=== PATIENT | female | born 1990 | race Caucasian/White ===

== ENCOUNTER 2025-05-14 10:13 | Emergency (ER) | payer MEDICAID ==
[~2025-05-14] VITALS: Ht 157.5 cm; Wt 50.8 kg
[2025-05-14 10:19] VITALS: TEMP 98.5
[2025-05-14] MEDS: ondansetron 4mg rapidly disintigrating tab PO ONE (10:41)
[2025-05-14 10:50] LABS: MEAN PLATELET VOLUME 7.2 FL (7.4-10.4); RED CELL DISTRIBUTION WIDTH 13.4 % (11.5-14.5)
[2025-05-14 11:07] LABS: CREATININE 0.74 MG/DL (0.40-0.90); TOTAL CARBON DIOXIDE 30.1 MMOL/L (24-32); eCRCL 83 ML/MIN; eGFR 89 ML/MIN
[2025-05-14] MEDS: ondansetron/PF 4mg/2ml inj IV ONE (11:09)
[2025-05-14] MEDS: normal saline 1000ml 1,000 ML IV ONE (11:10)
[2025-05-14] MEDS ORDERED: iohexol 300mg/ml 100ml inj. ONE (11:58)
[2025-05-14] MEDS: morphine 4 MG/ML inj SYRINge IV ONE (12:18)
[2025-05-14 12:21] LABS: LEUKOCYTE ESTERASE ,URINE NEGATIVE (Neg); NITRITES, URINE NEGATIVE (Neg); OCCULT BLOOD,URINE NEGATIVE (Neg)
[2025-05-14 12:24] LABS: URINE HCG NEGATIVE (NEG)
[2025-05-14 12:35] LABS: UA COLLECTION TYPE CLN CATCH MIDSTREAM
[2025-05-14 12:49] LABS: HYALINE CASTS 0-3 /LPF (NEGATIVE); MUCUS STRANDS FEW /LPF (Neg); SQUAMOUS EPITHELIAL CELL,UR MODERATE /LPF (FEW)
--- NOTE | 2025-05-14 13:59 | RADIOLOGY REPORT ---
Indication: Abdominal pain, nausea vomiting, leukocytosis Technique: CT axial images of the abdomen and pelvis are obtained with intravenous contrast. Coronal and sagittal reformats were obtained. Radiation Dose Information: CTDI volume is 6 mGy. Dose-length product is 277 mGy*cm Comparison: None FINDINGS: Lung bases demonstrate 3 mm left lower lobe subpleural nodule Adrenal glands unremarkable. Spleen unremarkable. Pancreas unremarkable. No enhancing hepatic lesion. No CT evidence for cholelithiasis. Liver measures 21 cm craniocaudal. No hydronephrosis. Stomach is partially distended. Small bowel loops are normal in caliber. Large bowel relatively nondistended. No secondary signs for appendicitis. The abdominal aorta is normal in caliber. No retroperitoneal lymphadenopathy. Bladder is partially distended. No significant free pelvic fluid. No inguinal lymphadenopathy. No aggressive osseous process. IMPRESSION: No CT evidence for acute abnormality of the abdomen/pelvis. Hepatomegaly. Other findings as described
[2025-05-14 14:26] VITALS: BP 101/66; PULSE 71; RESP 16; O2SAT 98
--- NOTE | 2025-05-14 14:56 | Physician Documentation ---
History of Present Illness Chief Complaint: Vomiting Stated Complaint: POSS ALCOHOL POISONING Time Seen by MD: 10:23 HPI 35-year-old female presented with 16 hours of abdominal pain, nausea, and vomiting. Family members have had similar symptoms. Patient reports she has been unable to keep fluids down since 5:00 a.m. this morning. Reports he drank a few cocktails LEs and is concerned that this may be contributing to her episode today. No other symptoms reported at this time. Medication Reconciliation Allergies: Coded Allergies: No Known Allergies (Unverified , 05/14/25) Review of Systems ROS As stated above in the HPI, otherwise all systems are reviewed and negative. Physical Exam Vital Signs: Temperature: 98.5, Source: Temporal, Heart Rate: 71, Respiratory Rate: 16, BP: 101/66, Pulse Oximetry: 98, Weight: 50.800 Oxygen Flow Rate: 0 Physical Exam VITALS: Reviewed and as above. GENERAL: Alert, no apparent distress. HEENT: Normocephalic, atraumatic, PERRL, EOMI, dry mucosa, no erythema RESPIRATORY: Lungs clear, normal breath sounds, no respiratory distress. CHEST: No accessory muscle use, no retractions CV: Regular rate, rhythm, no edema, no murmur, No: JVD GI: Soft, tender with palpation throughout abdomen, bowels sounds present, no rebound, guarding, or rigidity BACK: No CVA tenderness, or swelling MUSCULOSKELETAL No deformities, no edema SKIN: Warm and dry, no rash NEURO: Oriented x4, No motor or sensory deficit PSYCH: Normal mood and affect, no agitation Progress Results/Orders Results/Orders Orders - SYBIL BUI * Iv Access / Saline Lock * (05/14/25 10:50) Ct Abdomen Pelvis (05/14/25 13:20) Completed Orders - SYBIL BUI Hcg, Ur Ql (05/14/25 10:23) Cbc/Diff (05/14/25 10:23) Lipase (05/14/25 10:23) CMP (05/14/25 10:23) Ondansetron Disint. Tablet (Zofran Odt T (05/14/25 10:25) Ondansetron Inj. (Zofran 4mg/2ml Vial) (05/14/25 10:50) Normal Saline 1000ml (0.9% Sodium Chlori (05/14/25 10:50) Ct Abdomen Pelvis (05/14/25 13:20) Iohexol 300mg/Ml 100ml Inj. (Omnipaque-3 (05/14/25 11:58) Morphine 4mg/Ml Inj. (Morphine Inj.) (05/14/25 12:10) Ua W/Microscopic, Cult If Ind (05/14/25 12:05) Medications Received in ER Medications (Trade) Dose Ordered Sig/Renetta Route PRN Reason Start Time Stop Time Status Last Admin Dose Admin (Zofran ODT tablet) 4 mg ONCE ONCE PO 05/14/25 10:25 05/14/25 10:26 DC 05/14/25 10:41 4 MG (Zofran 4mg/2ml vial) 4 mg ONCE ONCE IV 05/14/25 10:50 05/14/25 11:04 DC 05/14/25 11:09 4 MG Sodium Chloride 1,000 ml @ 1,000 mls/hr ONCE ONCE IV 05/14/25 10:50 05/14/25 11:49 DC 05/14/25 11:10 1,000 MLS/HR (morphine inj.) 4 mg ONCE ONCE IV 05/14/25 12:10 05/14/25 12:12 DC 05/14/25 12:18 4 MG Vital Signs 05/14/25 05/14/25 05/14/25 05/14/25 10:19 12:11 12:18 13:42 Temp 98.5 Pulse 77 84 Resp 18 20 16 16 B/P (MAP) 112/58 145/110 (122) Pulse Ox 99 98 O2 Flow Rate 0 0 05/14/25 14:26 Pulse 71 Resp 16 B/P (MAP) 101/66 Pulse Ox 98 Laboratory Tests Test 05/14/25 10:42 05/14/25 12:05 White Blood Count 13.5 H Red Blood Count 4.38 Hemoglobin 13.4 Hematocrit 40.0 Mean Corpuscular Volume 91.3 Mean Corpuscular Hemoglobin 30.6 Mean Corpuscular Hemoglobin Concent 33.5 Red Cell Distribution Width 13.4 Platelet Count 319 Mean Platelet Volume 7.2 L Neutrophils (%) (Auto) 84.1 H Lymphocytes (%) (Auto) 11.6 L Monocytes (%) (Auto) 3.7 Eosinophils (%) (Auto) 0.3 Basophils (%) (Auto) 0.3 Neutrophils # (Auto) 11.4 H Lymphocytes # (Auto) 1.6 Monocytes # (Auto) 0.5 Eosinophils # (Auto) 0.0 Basophils # (Auto) 0.0 CBC Comment Sodium Level 139 Potassium Level 3.9 Chloride Level 101 Carbon Dioxide Level 30.1 Anion Gap 8 Blood Urea Nitrogen 11 Creatinine 0.74 Estimated GFR/1.73 m2 89 BUN/Creatinine Ratio 14.9 Glucose Level 119 H Calcium Level 8.8 Total Bilirubin 0.4 Aspartate Amino Transf (AST/SGOT) 36 Alanine Aminotransferase (ALT/SGPT) 46 Alkaline Phosphatase 84 Total Protein 8.1 Albumin 4.3 Globulin 3.8 Albumin/Globulin Ratio 1.1 Lipase 143 H Chemistry Comments Urine Specimen Description Cln catch midstream Urine Color Yellow Urine Clarity Clear Urine pH 8.5 Urine Specific [place] 1.015 Urine Protein 30 H Urine Glucose (UA) Negative Urine Ketones >=80 Urine Occult Blood Negative Urine Nitrite Negative Urine Bilirubin Negative Urine Urobilinogen 0.2 Urine Leukocyte Esterase Negative Urine RBC 0-2 Urine WBC 0-4 Urine Squamous Epithelial Cells Moderate Urine Transitional Epithelial Cells Few Urine Bacteria 1+ Urine Hyaline Casts 0-3 Urine Mucus Few Urine Culture Indicated Not ind Volume Urine Centrifuged 10 ml Urine HCG, Qualitative Negative Urine Comment Medical Decision Making Additional information obtaine: other Findings 35-year-old female presented with 16 hours of abdominal pain, nausea, and vomiting. Family members have had similar symptoms, raising suspicion for a viral gastroenteritis. She consumed alcohol last night and was concerned about its contribution. No history of prior abdominal surgeries or chronic GI disease. No alarm features (e.g., peritonitis, hemodynamic instability, GI bleeding). Evaluation: Vitals stable throughout ED course. Physical exam: No peritoneal signs, no focal tenderness suggestive of surgical abdomen. Labs: Mild leukocytosis, no evidence of metabolic derangement or organ dysfunction. Imaging: CT abdomen/pelvis negative for appendicitis, obstruction, or other acute abdominal pathology. Responded well to IV fluids, ondansetron, and morphine for pain. Medical Decision-Making: Most likely diagnosis is acute viral gastroenteritis, given symptom profile, family history, and absence of surgical pathology. Mild leukocytosis is consistent with a self-limited infectious or inflammatory process. No evidence for appendicitis, cholecystitis, bowel obstruction, or other acute surgical condition. Symptomatic management with antiemetics (ondansetron) is appropriate; opioid analgesia was used judiciously for pain control. Patient is now resting comfortably, tolerating oral fluids, and feels well enough for discharge. Discharge Plan: Prescribe ondansetron for ongoing nausea/vomiting, with instructions for use and warnings regarding potential side effects (QT prolongation, serotonin syndrome). [employer] on oral rehydration and gradual return to normal diet. Provide strict return precautions: worsening pain, persistent vomiting, inability to tolerate fluids, fever, or new symptoms. Advise follow-up with primary care provider for reassessment if symptoms persist or worsen. will provide transportation home. Disposition: Safe for discharge with supportive care, clear instructions, and reliable follow-up. No evidence of acute surgical abdomen or need for admission at this time. Differential Dx:Considerations: Appendicitis, Bowel obstruction, Cholangitis, Gastritis/PUD, Gastroenteritis, GI hemorrhage, Inflammatory BD, Ischemic bowel, Ovarian cyst/torsion, Pancreatitis, Urinary obstruction, Urinary tract infection, Other Departure Disposition: 01 HOME / SELF CARE / HOMELESS Impression: Primary Impression: Viral gastroenteritis Condition: Stable Discharge Instructions: Viral Gastroenteritis, Adult Additional Instructions: You were seen in the emergency department for abdominal pain, nausea, and vomiting. Your tests did not show any serious problems like appendicitis, and your symptoms are most likely due to a stomach virus (gastroenteritis). What to expect: Most people start to feel better within a few days. You may still have some nausea, vomiting, or diarrhea for a short time. How to care for yourself at home: Stay hydrated: Drink small sips of water, clear liquids, or oral rehydration solutions (like Pedialyte or Gatorade). This helps replace fluids lost from vomiting or diarrhea. Eat when you feel ready: Start with bland foods (toast, rice, bananas, applesauce) and slowly return to your normal diet as you feel better. Early eating can help you recover faster. Take your medicine: Use ondansetron (Zofran) as prescribed to help with nausea and vomiting. Only take it as directed. Rest: Get plenty of rest while your body recovers. What to avoid: Avoid alcohol until you are fully recovered. Avoid dairy, spicy, or fatty foods until your stomach feels better. Do not take medicines like loperamide (Imodium) unless your doctor tells you to, especially if you have a fever or blood in your stool. Prevent spreading illness: Wash your hands often with soap and water. Do not share food, drinks, or utensils with others until you are well. When to seek medical help: Return to the emergency department or call your doctor if you have: Severe or worsening abdominal pain Vomiting that will not stop or you cannot keep fluids down Signs of dehydration (dry mouth, not urinating, feeling very weak or dizzy) Blood in your vomit or stool High fever (over 101F) Trouble breathing or chest pain Follow-up: Schedule a visit with your primary care provider if you are not improving in a few days or have any concerns. Your will pick you up and help you get home safely. If you have any questions or new symptoms, do not hesitate to contact your doctor or return to the emergency department. Referrals: NO PRIMARY CARE PROVIDER (PCP) Prescriptions ONDANSETRON ODT 4mg tablet (ONDANSETRON ODT) 4 Mg Tab.rapdis 1 TAB PO Q6H PRN PRN for nausea/vomiting for 4 Days, #16 TAB 0 Refills Prov: SYBIL BUI 05/14/25 Education Educated: Patient Educated regarding: diagnosis, treatment, need for follow up Signature Scribe Signature: A Attestation: Scribed for Sybil Bui by LUIS FERNANDO Farrell . 05/14/25 15:01 SYBIL BUI May 14, 2025 14:56
[2025-05-14] MEDS ORDERED: ONDA-243 PO (15:00)
== END 2025-05-14 15:09 | disposition home or self-care (01) ==
LOC: ER 10:14
DX: A08.4 Viral intestinal infection, unspecified (principal)
CPT/HCPCS: 36415; 74177; 80053; 81001; 81025; 83690; 85025; 96361; 96374; 96375; 99285; J2270; J2405; J7030; Q9967